=== PATIENT | female | born 1950 | race Caucasian/White ===

== ENCOUNTER → 2018-05-09 | Day surgery (SDC) | payer MEDICARE ==
[~2018-05-09] VITALS: Ht 154.9 cm; Wt 99.8 kg
[~2018-05-09] MED LIST: BENICAR40 MG PO; CELEXA40 MG PO; DYAZIDE 37.5-21 EACH PO; METFORMIN ER500 MG PO; ZIAC 5-6.25 MG1 EACH PO
--- NOTE | ~2018-05-09 | O ---
[place], [place] OPERATIVE NOTE NAME: LATONIA HOLLINS UNIT #: [id number] ROOM: DOCTOR: JESUS LY MD BIRTHDATE: [birth year] DOS: 05/09/2018 HISTORY: This is a 67-year-old patient who presented with colonic screening, undergone investigation. ALLERGIES: No known medications. FAMILY HISTORY: Son with colonic cancer. PAST SURGICAL HISTORY: Cataract, dental extraction, C-sections. PAST MEDICAL HISTORY: Hypertension, diabetes mellitus, hypercholesterolemia, glaucoma. SOCIAL HISTORY: Nonsmoker, rare alcohol consumer. PROCEDURE: Today's procedure part of investigation is colonoscopy plus piecemeal polypectomy. PREMEDICATIONS: Propofol. SCOPE: Olympus folding colonoscope 10L video. REPORT: After putting the patient in left lateral position and application of lubricant to the scope, the scope was introduced. Thereafter under direct visualization, advanced through the length of colon without difficulty. Base of the cecum explored. Upon service identified, ileocecal valve was defined. Sessile polypoid lesion and transverse colon with piecemeal polypectomy was removed. The scope was gradually withdrawn along the transverse colon and descending colon, diverticulosis appreciated. Photographic series obtained. Air was suctioned out. The patient was extubated, tolerated the procedure well. IMPRESSION: Sessile colonic polyp, status post piecemeal polypectomy. PLAN: High fiber fruit diet. ACTIVITY: Ad milly. FOLLOWUP: Routinely with you in office, p.r.n., visit with us in [facility]. Thank you very much indeed. Next colonoscopic examination for this patient is within 5 years. [place], [place] OPERATIVE NOTE NAME: LATONIA HOLLINS UNIT #: [id number] ROOM: DOCTOR: JESUS LY MD BIRTHDATE: [birth year] JESUS LY MD CM:OPRECORD:OPERATIVE NOTE [id number] JESUS LY MD 05/09/18 1352 interface
[2018-05-09 12:04] VITALS: BP 190/73
[2018-05-09 13:15] VITALS: BP 127/55
[2018-05-09 13:30] VITALS: BP 147/66
[2018-05-09 13:45] VITALS: BP 138/72
== END | disposition home or self-care (01) ==
LOC: SDC 05-06 11:00
DX: Z12.11 Encounter for screening for malignant neoplasm of colon (principal); Z80.0 Family history of malignant neoplasm of digestive organs; K63.5 Polyp of colon; K57.30 Diverticulosis of large intestine without perforation or abscess without bleeding; I10 Essential (primary) hypertension; E11.9 Type 2 diabetes mellitus without complications; E78.00 Pure hypercholesterolemia, unspecified; F41.9 Anxiety disorder, unspecified; M19.90 Unspecified osteoarthritis, unspecified site; H40.9 Unspecified glaucoma; E66.09 Other obesity due to excess calories; D64.9 Anemia, unspecified; F32.9 Major depressive disorder, single episode, unspecified; Z79.899 Other long term (current) drug therapy; Z98.890 Other specified postprocedural states

== ENCOUNTER → 2021-08-22 | Outpatient (CLI) | payer MEDICARE ==
[2021-08-22 10:23] LABS: BASO # 0.1 10*3/uL (0.0-0.1); BASO % 0.6 % (0.0-1.0); EOS # 0.3 10*3/uL (0.0-0.4); EOS % 3.2 % (1.0-4.0); HEMATOCRIT 43.9 % (37.0-47.0); LYMPH # 1.3 10*3/uL (1.3-4.4); LYMPH % 13.8 % (27.0-41.0); MEAN CELL VOLUME 86.6 fl (81.0-99.0); MEAN CORPUSCULAR HGB 28.2 pg (27.0-31.0); MEAN CORPUSCULAR HGB CONC 32.6 g/dl (33.0-37.0); MEAN PLATELET VOLUME 9.5 fl (9.6-12.3); MONO # 0.6 10*3/uL (0.1-1.0); MONO % 5.7 % (3.0-9.0); NEUT # 7.3 10*3/uL (2.3-7.9); NEUT % 76.5 % (47.0-73.0); PLATELET COUNT AUTOMATED 275 10*3/uL (130-400); RED BLOOD COUNT 5.07 10*6/uL (4.10-5.10); RED CELL DISTRI WIDTH 13.2 % (0-14.5); RETICULOCYTE % 2.36 % (0.50-2.50); WHITE BLOOD COUNT 9.6 10*3/uL (4.8-10.8)
[2021-08-22 10:39] LABS: BILIRUBIN 1+ (Negative); BLOOD Negative (Negative); CLARITY Cloudy (Clear); COLOR Dark Yellow (Yellow); GLUCOSE Negative (Negative); KETONE Trace (Negative); LEUKO ESTERASE Trace (Negative); NITRITE Negative (Negative); PH 5.5 (4.5-8.0); SPECIFIC GRAVITY 1.025 (1.001-1.030)
[2021-08-22 10:40] LABS: ALBUMIN 3.9 gm/dl (3.1-4.5); ALKALINE PHOSPHATASE 93 U/L (45-117); BUN 14 mg/dl (7-24); CHLORIDE 103 mmol/L (98-107); CHOLESTEROL 152 mg/dL (<200); CREATININE 0.77 mg/dL (0.55-1.02); IRON 101 ug/dL (50-170); LDL CHOLESTEROL 70 mg/dL (9-159); POTASSIUM 4.4 mmol/L (3.5-5.1); SGOT/AST 20 IU/L (3-35); SGPT/ALT 29 U/L (12-78); SODIUM 138 mmol/L (136-145); TOTAL IRON BINDING CAPACITY 390 ug/dl (250-450); TOTAL PROTEIN 7.6 gm/dL (6.4-8.2); TRIGLYCERIDES 110 mg/dl (<150)
[2021-08-22 10:47] LABS: GAMMA GLUTAMYL TRANSPEPTIDASE 20 U/L (5-55)
[2021-08-22 11:03] LABS: BACTERIA 3+; EPITHELIAL CELLS 16-20
[2021-08-22 11:05] LABS: FERRITIN 46.8 ng/mL (10.0-291.0); VITAMIN D, 25-HYDROXY 40.3 ng/mL (30-100)
== END | disposition home or self-care (01) ==
LOC: LAB 09:54
PROVIDERS: ATTEND Family Medicine
DX: E11.9 Type 2 diabetes mellitus without complications (principal); E55.9 Vitamin D deficiency, unspecified; R53.83 Other fatigue; R79.89 Other specified abnormal findings of blood chemistry; E78.5 Hyperlipidemia, unspecified

== ENCOUNTER → 2022-04-17 | Outpatient (CLI) | payer MEDICARE ==
[2022-04-17 12:47] LABS: BASO # 0.1 10*3/uL (0.0-0.1); EOS # 0.3 10*3/uL (0.0-0.4); EOS % 4.2 % (1.0-4.0); HEMATOCRIT 39.9 % (37.0-47.0); LYMPH # 1.3 10*3/uL (1.3-4.4); LYMPH % 16.5 % (27.0-41.0); MEAN CELL VOLUME 87.7 fl (81.0-99.0); MEAN CORPUSCULAR HGB 28.4 pg (27.0-31.0); MEAN CORPUSCULAR HGB CONC 32.3 g/dl (33.0-37.0); MEAN PLATELET VOLUME 9.9 fl (9.6-12.3); MONO # 0.4 10*3/uL (0.1-1.0); MONO % 5.2 % (3.0-9.0); NEUT # 5.8 10*3/uL (2.3-7.9); NEUT % 72.6 % (47.0-73.0); PLATELET COUNT AUTOMATED 224 10*3/uL (130-400); RED BLOOD COUNT 4.55 10*6/uL (4.10-5.10); RED CELL DISTRI WIDTH 13.5 % (0-14.5); RETICULOCYTE % 2.47 % (0.50-2.50)
[2022-04-17 13:05] LABS: ALKALINE PHOSPHATASE 77 U/L (45-117); BUN 19 mg/dl (7-24); CHLORIDE 106 mmol/L (98-107); CHOLESTEROL 151 mg/dL (<200); CREATININE 0.86 mg/dL (0.55-1.02); GAMMA GLUTAMYL TRANSPEPTIDASE 15 U/L (5-55); IRON 81 ug/dL (50-170); LDL CHOLESTEROL 79 mg/dL (9-159); POTASSIUM 4.1 mmol/L (3.5-5.1); SGOT/AST 15 IU/L (3-35); SGPT/ALT 23 U/L (12-78); SODIUM 138 mmol/L (136-145); TOTAL PROTEIN 7.3 gm/dL (6.4-8.2); TRIGLYCERIDES 112 mg/dl (<150)
[2022-04-17 13:08] LABS: BILIRUBIN 1+ (Negative); BLOOD Negative (Negative); CLARITY Cloudy (Clear); COLOR Dark Yellow (Yellow); GLUCOSE Negative (Negative); KETONE 1+ (Negative); LEUKO ESTERASE Trace (Negative); NITRITE Negative (Negative); PH 5.5 (4.5-8.0); SPECIFIC GRAVITY 1.025 (1.001-1.030)
[2022-04-17 13:10] LABS: VITAMIN D, 25-HYDROXY 33.4 ng/mL (30-100)
[2022-04-17 13:11] LABS: FERRITIN 31.7 ng/mL (10.0-291.0)
[2022-04-17 13:29] LABS: BACTERIA 3+
== END | disposition home or self-care (01) ==
LOC: LAB 12:16
PROVIDERS: ATTEND Family Medicine
DX: E78.5 Hyperlipidemia, unspecified (principal); R79.89 Other specified abnormal findings of blood chemistry; R53.83 Other fatigue; R74.8 Abnormal levels of other serum enzymes; E55.9 Vitamin D deficiency, unspecified

== ENCOUNTER → 2022-05-04 | Outpatient (CLI) | payer MEDICARE | LOC: RAD 11:09 | PROVIDERS: ATTEND Family Medicine | DX: M17.0 Bilateral primary osteoarthritis of knee (principal); M51.36 Other intervertebral disc degeneration, lumbar region; M48.061 Spinal stenosis, lumbar region without neurogenic claudication; I70.0 Atherosclerosis of aorta; M25.462 Effusion, left knee; M25.461 Effusion, right knee ==

== ENCOUNTER → 2022-11-20 | Outpatient (CLI) | payer MEDICARE ==
[2022-11-20 14:15] LABS: BASO # 0.1 10*3/uL (0.0-0.1); BILIRUBIN 1+ (Negative); BLOOD Negative (Negative); CLARITY Cloudy (Clear); COLOR Dark Yellow (Yellow); EOS # 0.4 10*3/uL (0.0-0.4); EOS % 4.3 % (1.0-4.0); GLUCOSE Negative (Negative); HEMATOCRIT 40.5 % (37.0-47.0); KETONE Trace (Negative); LEUKO ESTERASE Negative (Negative); LYMPH # 1.5 10*3/uL (1.3-4.4); LYMPH % 17.7 % (27.0-41.0); MEAN CELL VOLUME 84.4 fl (81.0-99.0); MEAN CORPUSCULAR HGB 27.5 pg (27.0-31.0); MEAN CORPUSCULAR HGB CONC 32.6 g/dl (33.0-37.0); MEAN PLATELET VOLUME 9.7 fl (9.6-12.3); MONO # 0.6 10*3/uL (0.1-1.0); NEUT % 69.8 % (47.0-73.0); NITRITE Negative (Negative); PH 5.5 (4.5-8.0); PLATELET COUNT AUTOMATED 247 10*3/uL (130-400); RED CELL DISTRI WIDTH 13.9 % (0-14.5); RETICULOCYTE % 2.22 % (0.50-2.50); SPECIFIC GRAVITY 1.025 (1.001-1.030); WHITE BLOOD COUNT 8.7 10*3/uL (4.8-10.8)
[2022-11-20 14:22] LABS: BACTERIA 3+; MUCOUS 1+
[2022-11-20 14:44] LABS: ALKALINE PHOSPHATASE 84 U/L (46-116); BUN 20 mg/dl (9-23); CHLORIDE 104 mmol/L (98-107); CHOLESTEROL 151 mg/dL (<200); GAMMA GLUTAMYL TRANSPEPTIDASE 17 U/L (0-73); LDL CHOLESTEROL 77 mg/dL (9-159); POTASSIUM 4.1 mmol/L (3.4-5.1); SGPT/ALT 10 U/L (10-49); T3 UPTAKE 19.6 % (22.4-36.7); THYROID STIM HORMONE (HS) 2.056 uIU/ml (0.550-4.780); THYROXINE (T4) TOTAL 9.1 ug/dl (4.5-10.9); TOTAL PROTEIN 7.1 gm/dL (6.0-8.0); TRIGLYCERIDES 102 mg/dl (<150)
[2022-11-20 14:46] LABS: VITAMIN D, 25-HYDROXY 39.5 ng/mL (30-100)
== END ==
LOC: LAB 13:49
PROVIDERS: ATTEND Family Medicine
DX: E78.5 Hyperlipidemia, unspecified (principal); R53.83 Other fatigue; R79.89 Other specified abnormal findings of blood chemistry; E55.9 Vitamin D deficiency, unspecified; R74.8 Abnormal levels of other serum enzymes

== ENCOUNTER → 2023-10-17 | Outpatient (CLI) | payer MEDICARE ==
[2023-10-17 13:32] LABS: BILIRUBIN Negative (Negative); BLOOD Negative (Negative); CLARITY Clear (Clear); COLOR Yellow (Yellow); GLUCOSE Negative (Negative); KETONE Negative (Negative); LEUKO ESTERASE Negative (Negative); NITRITE Negative (Negative); PH 5.5 (4.5-8.0); SPECIFIC GRAVITY 1.015 (1.001-1.030); UROBILINOGEN 0.2 E.U./dl (0.0-1.0)
[2023-10-17 13:33] LABS: BASO # 0.1 10*3/uL (0.0-0.1); BASO % 0.8 % (0.0-1.0); EOS # 0.3 10*3/uL (0.0-0.4); EOS % 4.1 % (1.0-4.0); HEMATOCRIT 39.8 % (37.0-47.0); LYMPH # 1.5 10*3/uL (1.3-4.4); LYMPH % 19.5 % (27.0-41.0); MEAN CELL VOLUME 87.5 fl (81.0-99.0); MEAN CORPUSCULAR HGB 27.7 pg (27.0-31.0); MEAN CORPUSCULAR HGB CONC 31.7 g/dl (33.0-37.0); MEAN PLATELET VOLUME 9.3 fl (9.6-12.3); MONO # 0.6 10*3/uL (0.1-1.0); MONO % 7.2 % (3.0-9.0); NEUT # 5.3 10*3/uL (2.3-7.9); NEUT % 68.1 % (47.0-73.0); PLATELET COUNT AUTOMATED 211 10*3/uL (130-400); RED BLOOD COUNT 4.55 10*6/uL (4.10-5.10); RED CELL DISTRI WIDTH 14.4 % (0-14.5); RETICULOCYTE % 1.98 % (0.50-2.50); WHITE BLOOD COUNT 7.8 10*3/uL (4.8-10.8)
[2023-10-17 13:47] LABS: BACTERIA 4+
[2023-10-17 14:32] LABS: VITAMIN D, 25-HYDROXY 66.4 ng/mL (30-100)
[2023-10-17 14:33] LABS: ALKALINE PHOSPHATASE 78 U/L (46-116); BUN 21 mg/dl (9-23); CHLORIDE 102 mmol/L (98-107); CHOLESTEROL 149 mg/dL (<200); GAMMA GLUTAMYL TRANSPEPTIDASE 16 U/L (0-73); LDL CHOLESTEROL 72 mg/dL (9-159); POTASSIUM 4.4 mmol/L (3.4-5.1); SGPT/ALT 13 U/L (5-49); T3 UPTAKE 25.9 % (22.4-36.7); THYROXINE (T4) TOTAL 7.4 ug/dl (4.5-10.9); TOTAL PROTEIN 7.4 gm/dL (6.0-8.0); TRIGLYCERIDES 114 mg/dl (<150)
== END | disposition home or self-care (01) ==
LOC: LAB 13:06
PROVIDERS: ATTEND Family Medicine
DX: E78.5 Hyperlipidemia, unspecified (principal); E55.9 Vitamin D deficiency, unspecified; R79.89 Other specified abnormal findings of blood chemistry; R53.83 Other fatigue; R74.8 Abnormal levels of other serum enzymes

== ENCOUNTER → 2024-02-21 | Outpatient (CLI) | payer MEDICARE ==
[2024-02-21 10:46] LABS: BASO # 0.1 10*3/uL (0.0-0.1); BASO % 1.1 % (0.0-1.0); EOS # 0.3 10*3/uL (0.0-0.4); EOS % 4.5 % (1.0-4.0); HEMATOCRIT 39.8 % (37.0-47.0); LYMPH # 1.2 10*3/uL (1.3-4.4); LYMPH % 16.2 % (27.0-41.0); MEAN CELL VOLUME 86.5 fl (81.0-99.0); MEAN CORPUSCULAR HGB 29.3 pg (27.0-31.0); MEAN CORPUSCULAR HGB CONC 33.9 g/dl (33.0-37.0); MEAN PLATELET VOLUME 9.2 fl (9.6-12.3); MONO # 0.5 10*3/uL (0.1-1.0); MONO % 6.1 % (3.0-9.0); NEUT # 5.3 10*3/uL (2.3-7.9); NEUT % 71.8 % (47.0-73.0); PLATELET COUNT AUTOMATED 219 10*3/uL (130-400); RED CELL DISTRI WIDTH 14.5 % (0-14.5); RETICULOCYTE % 2.56 % (0.50-2.50); WHITE BLOOD COUNT 7.3 10*3/uL (4.8-10.8)
[2024-02-21 10:49] LABS: BILIRUBIN Negative (Negative); BLOOD Negative (Negative); CLARITY Cloudy (Clear); COLOR Dark Yellow (Yellow); GLUCOSE Negative (Negative); KETONE Trace (Negative); LEUKO ESTERASE Negative (Negative); NITRITE Negative (Negative); SPECIFIC GRAVITY 1.025 (1.001-1.030)
[2024-02-21 11:03] LABS: BACTERIA 3+; EPITHELIAL CELLS 16-20
[2024-02-21 11:12] LABS: ALKALINE PHOSPHATASE 79 U/L (46-116); BUN 21 mg/dl (9-23); CHLORIDE 105 mmol/L (98-107); CHOLESTEROL 168 mg/dL (<200); GAMMA GLUTAMYL TRANSPEPTIDASE 24 U/L (0-73); LDL CHOLESTEROL 94 mg/dL (9-159); POTASSIUM 4.4 mmol/L (3.4-5.1); SGPT/ALT 12 U/L (5-49); T3 UPTAKE 29.1 % (22.4-36.7); TOTAL PROTEIN 7.1 gm/dL (6.0-8.0); TRIGLYCERIDES 90 mg/dl (<150); URIC ACID 7.3 mg/dL (3.1-7.8)
[2024-02-21 11:24] LABS: VITAMIN D, 25-HYDROXY 57.6 ng/mL (30-100)
[2024-02-24 14:07] LABS: ANTI-DSDNA ANTIBODIES <1 IU/mL (0-9)
== END | disposition home or self-care (01) ==
LOC: LAB 10:21
PROVIDERS: ATTEND Family Medicine
DX: E78.5 Hyperlipidemia, unspecified (principal); R79.89 Other specified abnormal findings of blood chemistry; R53.83 Other fatigue; E11.9 Type 2 diabetes mellitus without complications; E55.9 Vitamin D deficiency, unspecified

== ENCOUNTER → 2024-11-23 | Outpatient (CLI) | payer MEDICARE ==
[2024-11-23 15:16] LABS: BASO # 0.1 10*3/uL (0.0-0.1); EOS # 0.4 10*3/uL (0.0-0.4); EOS % 4.7 % (1.0-4.0); HEMATOCRIT 39.7 % (37.0-47.0); MEAN CELL VOLUME 87.6 fl (81.0-99.0); MEAN CORPUSCULAR HGB 27.8 pg (27.0-31.0); MEAN CORPUSCULAR HGB CONC 31.7 g/dl (33.0-37.0); MEAN PLATELET VOLUME 9.3 fl (9.6-12.3); MONO # 0.7 10*3/uL (0.1-1.0); MONO % 7.4 % (3.0-9.0); NEUT # 6.3 10*3/uL (2.3-7.9); PLATELET COUNT AUTOMATED 249 10*3/uL (130-400); RED BLOOD COUNT 4.53 10*6/uL (4.10-5.10); RED CELL DISTRI WIDTH 13.4 % (0-14.5); WHITE BLOOD COUNT 9.1 10*3/uL (4.8-10.8)
[2024-11-23 15:20] LABS: BILIRUBIN Negative (Negative); BLOOD Negative (Negative); CLARITY Cloudy (Clear); COLOR Dark Yellow (Yellow); GLUCOSE Negative (Negative); KETONE 1+ (Negative); LEUKO ESTERASE Trace (Negative); NITRITE Negative (Negative); SPECIFIC GRAVITY >= 1.030 (1.001-1.030)
[2024-11-23 16:01] LABS: ALKALINE PHOSPHATASE 100 U/L (46-116); BUN 19 mg/dl (9-23); CHLORIDE 103 mmol/L (98-107); CHOLESTEROL 210 mg/dL (<200); GAMMA GLUTAMYL TRANSPEPTIDASE 21 U/L (0-73); LDL CHOLESTEROL 125 mg/dL (9-159); POTASSIUM 4.3 mmol/L (3.4-5.1); SGPT/ALT 12 U/L (5-49); T3 UPTAKE 26.3 % (22.4-36.7); TOTAL PROTEIN 7.1 gm/dL (6.0-8.0); TRIGLYCERIDES 139 mg/dl (<150); VITAMIN D, 25-HYDROXY 77.6 ng/mL (30-100)
[2024-11-23 16:02] LABS: BACTERIA 4+; MUCOUS 1+
== END | disposition home or self-care (01) ==
LOC: LAB 14:41
PROVIDERS: ATTEND Family Medicine
DX: R79.89 Other specified abnormal findings of blood chemistry (principal); R53.83 Other fatigue; E55.9 Vitamin D deficiency, unspecified; E78.5 Hyperlipidemia, unspecified

== ENCOUNTER → 2025-04-15 | Outpatient (CLI) | payer MEDICARE | END | disposition home or self-care (01) | LOC: MAMMO 03:52 | PROVIDERS: ATTEND Family Medicine | DX: Z12.31 Encounter for screening mammogram for malignant neoplasm of breast (principal); R92.313 Mammographic fatty tissue density, bilateral breasts; Z80.3 Family history of malignant neoplasm of breast ==